=== PATIENT | male | born 1975 | race African-American/Black ===

== ENCOUNTER 2018-06-23 17:18 | Emergency (ER) | payer BC, OTHER ==
[~2018-06-23] VITALS: Ht 177.8 cm; Wt 115.7 kg
--- NOTE | ~2018-06-23 | EKG ---
[place] [address] [place] [facility] [place] [address] ELECTROCARDIOGRAM REPORT Name: SHELDON SHARMA [id number] Admission: 06/23/18 Attend Phys: Discharge: 06/23/18 Date of : 75 Report #: [id number] THIS REPORT FOR: //name// [facility] ED Test Date: 2018-06-23 Test Time: 17:49:31 Pat Name: SHELDON SHARMA Department: Room: Gender: Nurse First Aid: : 1975 Requested By: Win Torres Order Number: [id number] MD: Shawn Verde Measurements Intervals [place] Rate: 74 P: 61 NE: 180 QRS: 32 QRSD: 99 T: 2 QT: 395 QTc: 439 Interpretive Statements Sinus rhythm Nonspecific T wave abnormality Compared to ECG 09/03/2011 21:16:35 No significant changes Electronically Signed On 06-24-2018 8:27:00 CDT by Shawn Verde [email or web address] <ELECTRONICALLY SIGNED> By: Shawn Verde MD, [facility] 06/24/18 0827 1749 1749 Shawn Verde MD, FACC /EPI
[~2018-06-23 17:18] MED LIST: ACETAMINOPHEN-120 ML PO; HYDROCODON-ACE1 EAC7 PO; LISINOPRIL10 MG PO; LISINOPRIL5 MG PO; NOHOMEMEDICATIONS; PRINZIDE 20-121 EACH PO; VENTOLIN17 GM INH; ZPAK PO
[2018-06-23 18:41] LABS: ABSOLUTE NEUTROPHILS 3.3 thou/uL (1.4-8.2); BASOPHILS 0.5 % (0.0-2.0); EOSINOPHILS 1.7 % (0.0-3.0); HEMATOCRIT 42.7 % (42.0-52.0); HEMOGLOBIN 14.7 gm/dL (14.0-18.0); LYMPHOCYTES 43.9 % (24.0-44.0); MCH 28.9 pg (26.0-34.0); MCHC 34.4 g/dL (28.0-37.0); MCV 84.2 fL (80.0-100.0); MONOCYTES 10.3 % (1.0-8.0); PLATELET COUNT 225 thou/uL (150-400); POLYS 43.6 % (36.0-66.0); RBC 5.07 mil/uL (4.50-6.00); RDW 13.8 % (10.5-14.5); WBC 7.6 thou/uL (4.0-11.0)
[2018-06-23 18:44] LABS: ANION GAP 11 mmol/L (7-16); BUN 8 mg/dL (7-18); CHLORIDE 99 mmol/L (98-107); CO2 29 mmol/L (21-32); CREATININE 1.3 mg/dL (0.7-1.3); GLUCOSE 89 mg/dL (74-106); SODIUM 139 mmol/L (136-145)
[2018-06-23 18:53] LABS: TROPONIN-I <0.06 ng/mL (<0.06)
[2018-06-23] MEDS ORDERED: NORVASC5 MG PO (21:46)
[2018-06-23] MEDS ORDERED: KLOR-CON 1010 MEQ PO (21:46)
[2018-06-23] MEDS ORDERED: LISINOPRIL20 MG PO (21:46)
[2018-06-23 22:38] VITALS: BP 156/93
== END 2018-06-23 22:43 | disposition home or self-care (01) ==
LOC: ER 17:18
PROVIDERS: Emergency Medicine
DX: E87.6 Hypokalemia (principal); R07.89 Other chest pain; I10 Essential (primary) hypertension; G47.30 Sleep apnea, unspecified; Z88.4 Allergy status to anesthetic agent

== ENCOUNTER 2018-11-03 13:12 | Emergency (ER) | payer BC, OTHER ==
[~2018-11-03] VITALS: Ht 180.3 cm; Wt 117.9 kg
[~2018-11-03 13:12] MED LIST changes: +KLOR-CON 1010 MEQ PO; +LISINOPRIL20 MG PO; +NORVASC5 MG PO
[2018-11-03] MEDS ORDERED: PROMETHAZINE V118 M1 PO (14:18)
[2018-11-03] MEDS ORDERED: MEDROLDOSEPACK PO (14:18)
[2018-11-03] MEDS ORDERED: TESSALON PERLE100 MG PO (14:18)
[2018-11-03] MEDS ORDERED: NORVASC5 MG PO (14:29)
[2018-11-03 15:01] VITALS: BP 164/110
== END 2018-11-03 15:02 | disposition home or self-care (01) ==
LOC: ER 13:12
DX: I10 Essential (primary) hypertension (principal); R05 Cough; G47.30 Sleep apnea, unspecified; Z88.8 Allergy status to other drugs, medicaments and biological substances

== ENCOUNTER 2019-02-04 07:16 | Emergency (ER) | payer BC, OTHER ==
[~2019-02-04] VITALS: Ht 177.8 cm; Wt 116.1 kg
[~2019-02-04 07:16] MED LIST changes: +MEDROLDOSEPACK PO; +PROMETHAZINE V118 M1 PO; +TESSALON PERLE100 MG PO
[2019-02-04] MEDS ORDERED: ZOCOR20 MG PO (07:23)
[2019-02-04] MEDS ORDERED: TRIAMTERENE/HCT1 CA1 (07:23)
[2019-02-04] MEDS ORDERED: CLINDAMYCIN HC300 MG PO (08:58)
[2019-02-04] MEDS ORDERED: TRAMADOL 50 MG50 MG PO (08:58)
[2019-02-04 09:08] VITALS: BP 143/98
== END 2019-02-04 09:09 | disposition home or self-care (01) ==
LOC: ER 07:16
DX: L03.012 Cellulitis of left finger (principal); I10 Essential (primary) hypertension; G47.30 Sleep apnea, unspecified; Z88.8 Allergy status to other drugs, medicaments and biological substances